=== PATIENT | female | born 1950 | race Caucasian/White ===

== ENCOUNTER → 2017-02-04 | Outpatient (CLI) | payer MEDICARE, MEDICAID ==
--- NOTE | 2017-02-04 22:32 | RADRPT ---
Echocardiogram Report Patient Name: AG CLARK Gender: Female Date: 1950 Study Date: 04-Feb-2017 Proprietary Trader: Thaddeus [facility] Location: EKG Ref. Physician: CHAMP MOORE Quality: Adequate Procedures: Transthoracic echocardiogram with complete 2D, M-Mode, and doppler examination. Indications: Breast CA. 2D/M Mode Doppler Measurement Value Normal Ranges Measurement Value Normal Ranges LVIDd 2D 3.8 3.5 - 5.6 cm AV Peak Chuy 2.2 m/sec LVIDs 2D 2.7 2.1 - 4.1 cm AV Peak PG 18.0 mmHg FS 2D 30.3 % LVOT Peak Chuy 1.6 m/sec LVPWd 2D 1.3 0.6 - 1.1 cm LVOT Peak PG 10.0 mmHg IVSd 2D 1.3 0.6 - 1.1 cm MV E Peak Chuy 1.5 m/sec IVS/LVPW 2D 1.0 MV Decel Time 74 msec AoR Diam 2D 2.8 2.0 - 3.7 cm TR Peak Chuy 2.1 m/sec LA/Ao 2D 1 0 - 1 TR Peak PG 18.0 mmHg EDV 2D 54.9 cm3 RVSP 21.0 mmHg ESV 2D 18.6 cm3 LA Dimen 2D 3.2 2.3 - 4.0 cm Findings Left Ventricle: Normal left ventricular systolic function. Normal left ventricular cavity size. Moderate concentric left ventricular hypertrophy. Ejection fraction is visually estimated at 65 %. Abnormal Diastolic Function. Right Ventricle: Normal right ventricular size. Normal right ventricular systolic function. Left Atrium: The left atrium is normal in size. Right Atrium: The right atrium is normal in size. Mitral Valve: Mild mitral leaflet calcification. Mild mitral annular calcification. Trace mitral regurgitation. Aortic Valve: Aortic cusps appear mildly calcified. Trace aortic valve regurgitation. Tricuspid Valve: Normal appearance of the tricuspid valve. Estimated peak PA systolic pressure 21 mmHg. There is trace tricuspid regurgitation. Pulmonic Valve: Normal pulmonic valve appearance. There is trace pulmonic regurgitation. Pericardium: Normal pericardium with no significant pericardial effusion. Aorta: Normal aortic root. IVC: Normal size and normal respiratory collapse consistent with normal right atrial pressure. Conclusions Normal left ventricular systolic function. Normal left ventricular cavity size. Moderate concentric left ventricular hypertrophy. Ejection fraction is visually estimated at 65 %. Abnormal Diastolic Function. Normal right ventricular size. Normal right ventricular systolic function. The left atrium is normal in size. The right atrium is normal in size. No significant valvular stenosis or regurgitation seen. Normal pericardium with no significant pericardial effusion. Electronically Signed By: Waqar Lovelace 04-Feb-2017 22:32:[id number] -0700 Patient Name: AG CLARK Study Date: 04-Feb-2017 [id number]
== END | disposition home or self-care (01) ==
LOC: EKG 14:42
PROVIDERS: ATTEND Internal Medicine Hematology & Oncology
DX: C50.919 Malignant neoplasm of unspecified site of unspecified female breast (principal)
CPT/HCPCS: 93306

== ENCOUNTER 2017-02-19 07:11 | Day surgery (SDC) | END 2017-02-19 15:33 | disposition home or self-care (01) | DX: C50.912 Malignant neoplasm of unspecified site of left female breast (principal); E11.9 Type 2 diabetes mellitus without complications; I10 Essential (primary) hypertension; E78.5 Hyperlipidemia, unspecified | CPT/HCPCS: 36561; 76942; 82962; C1788; J0690; J1644; J2250; J3010; J7040 ==

== ENCOUNTER 2017-09-19 08:20 | Day surgery (SDC) | END 2017-09-19 16:35 | disposition home or self-care (01) ==